=== PATIENT | female | born 1970 | race Two or more races ===

== ENCOUNTER 2017-11-19 09:52 | Emergency (ER) | payer SELFPAY ==
[2017-11-19] MEDS ORDERED: PREDNISONE 20 MG TABLET PO ONE (10:12)
[2017-11-19] MEDS ORDERED: ALBUTEROL SULFATE 0.083% NEB 2.5 MG/3 ML AMPUL NEB ONE (10:12)
--- NOTE | 2017-11-19 11:05 | ER Document Report ---
ED General - General Chief Complaint: Breathing Difficulty Stated Complaint: BREATHING DIFFICULTY Time Seen by Provider: 11/19/17 10:12 Mode of Arrival: Ambulatory Information source: Patient Notes: Patient presents with shortness of breath. She states she is felt short of breath for approximately 3-4 days. She states she has had some sinus congestion that is exacerbated her asthma. She states she currently does not have any medications for her asthma. She states that the symptoms are worse with exertion and better with rest. There is no known radiation symptoms. Symptoms are moderate. Symptoms are intermittent. She has had sinus congestion but a nonproductive dry cough. TRAVEL OUTSIDE OF THE [place] IN LAST 30 DAYS: No - Related Data Allergies/Adverse Reactions: No Known Allergies Allergy (Verified 11/19/17 09:53) Past Medical History - General Information source: Patient - Social History Smoking Status: Never Smoker Chew tobacco use (# tins/day): No Frequency of alcohol use: None Drug Abuse: None Family History: Reviewed & Not Pertinent Patient has suicidal ideation: No Patient has homicidal ideation: No Renal/ Medical History: Denies: Hx Peritoneal Dialysis Past Surgical History: Reports: Hx Breast Surgery - R lumpectomy - Immunizations Hx Diphtheria, Pertussis, Tetanus Vaccination: No Review of Systems - Review of Systems Constitutional: Malaise. denies: Fever Cardiovascular: Dyspnea. denies: Syncope Respiratory: Cough, Short of breath Gastrointestinal: denies: Diarrhea, Vomiting -: Yes All other systems reviewed and negative Physical Exam - Vital signs Vitals: Temp Pulse Resp BP Pulse Ox 99.1 F 95 20 133/85 H 95 11/19/17 09:59 11/19/17 09:59 11/19/17 09:59 11/19/17 09:59 11/19/17 09:59 Interpretation: Hypertensive - General General appearance: Appears well, Alert - HEENT Head: Normocephalic, Atraumatic Eyes: Normal Pupils: PERRL - Respiratory Respiratory status: No respiratory distress Chest status: Nontender Breath sounds: Wheezing Chest palpation: Normal - Cardiovascular Rhythm: Regular Heart sounds: Normal auscultation Murmur: No - Abdominal Inspection: Normal Distension: No distension Bowel sounds: Normal Tenderness: Nontender Organomegaly: No organomegaly - Back Back: Normal, Nontender - Extremities General upper extremity: Normal inspection, Nontender, Normal color, Normal ROM , Normal temperature General lower extremity: Normal inspection, Nontender, Normal color, Normal ROM , Normal temperature, Normal weight bearing. No: Abbey's sign - Neurological Neuro grossly intact: Yes Cognition: Normal Orientation: AAOx4 Sikes Coma Scale Eye Opening: Spontaneous Sikes Coma Scale Verbal: Oriented William Coma Scale Motor: Obeys Commands Sikes Coma Scale Total: 15 Speech: Normal Motor strength normal: LUE, RUE, LLE, RLE Sensory: Normal - Psychological Associated symptoms: Normal affect, Normal mood - Skin Skin Temperature: Warm Skin Moisture: Dry Skin Color: Normal Course - Re-evaluation Re-evalutation: 11/19/17 11:03 After albuterol and steroids patient states she feels significantly better. - Vital Signs Vital signs: Temp Pulse Resp BP Pulse Ox 99.1 F 95 20 133/85 H 95 11/19/17 09:59 11/19/17 09:59 11/19/17 09:59 11/19/17 09:59 11/19/17 09:59 Discharge - Discharge Clinical Impression: Acute asthma exacerbation Qualifiers: Asthma severity: mild Asthma persistence: intermittent Qualified Code(s): J45.21 - Mild intermittent asthma with (acute) exacerbation Condition: Stable Disposition: HOME, SELF-CARE Instructions: Asthma ([facility]) Additional Instructions: Your blood pressure is mildly elevated. Please have this rechecked in 1 week by your doctor. Prescriptions: Albuterol Sulfate [Ventolin Hfa] 1 - 2 puff IH Q4 PRN #1 [id number].[id number] PRN Reason: Prednisone [Deltasone 20 mg Tablet] 3 tab PO DAILY 5 Days tablet Forms: Elevated Blood Pressure, Return to Work Referrals: KRANTHI LOPES MD [COMMUNITY BASED STAFF] - Follow up as needed
[2017-11-19 11:36] VITALS: BP 139/90
== END 2017-11-19 11:25 | disposition home or self-care (01) ==
LOC: ER 09:52
DX: J45.21 Mild intermittent asthma with (acute) exacerbation (principal); R09.81 Nasal congestion; R05 Cough
CPT/HCPCS: 94640; 99284; J7512

== ENCOUNTER 2018-12-22 09:18 | Emergency (ER) | payer OTHER ==
[2018-12-22] MEDS ORDERED: FAMOTIDINE 20 MG TABLET PO ONE (09:42)
[2018-12-22] MEDS ORDERED: PREDNISONE 20 MG TABLET PO ONE (09:42)
[2018-12-22 11:11] VITALS: BP 150/92
--- NOTE | 2018-12-25 09:03 | ER Document Report ---
Entered by BLADE ECHEVARRIA SCRIBE 12/22/18 0945 Acting as scribe for:PATRICK MIRANDA MD ED Allergic Reaction - General Chief Complaint: Allergic Reaction Stated Complaint: POSSIBLE ALLERGIC REACTION Time Seen by Provider: 12/22/18 09:27 TRAVEL OUTSIDE OF THE [place] IN LAST 30 DAYS: No - Related Data Allergies/Adverse Reactions: No Known Allergies Allergy (Verified 12/22/18 09:22) Past Medical History - General Information source: Patient - Social History Smoking Status: Never Smoker Family History: Reviewed & Not Pertinent Renal/ Medical History: Denies: Hx Peritoneal Dialysis Past Surgical History: Reports: Hx Breast Surgery - R lumpectomy - Immunizations Hx Diphtheria, Pertussis, Tetanus Vaccination: No Review of Systems - Review of Systems Constitutional: No symptoms reported EENT: See HPI, Difficulty swallowing, Other - facial swelling Cardiovascular: No symptoms reported Respiratory: No symptoms reported Gastrointestinal: No symptoms reported Genitourinary: No symptoms reported Female Genitourinary: No symptoms reported Musculoskeletal: No symptoms reported Skin: No symptoms reported Hematologic/Lymphatic: No symptoms reported Neurological/Psychological: No symptoms reported -: Yes All other systems reviewed and negative Physical Exam - Vital signs Vitals: Temp Pulse Resp BP Pulse Ox 97.9 F 88 16 149/99 H 100 12/22/18 09:34 12/22/18 09:34 12/22/18 09:34 12/22/18 09:34 12/22/18 09:34 - Notes Notes: Physical Exam: General: Alert, appears well. HEENT: Normocephalic. Atraumatic. PERRL. Extraocular movements intact. Oropharynx clear. No posterior oropharynx swelling. Neck: Supple. Non-tender. Respiratory: No respiratory distress. Clear and equal breath sounds bilaterally. Cardiovascular: Regular rate and rhythm. Abdominal: Normal Inspection. Non-tender. No distension. Normal Bowel Sounds. Back: Non-tender. No deformity or step off. Extremities: Moves all four extremities. Upper extremities: Normal inspection. Normal ROM. Lower extremities: Normal inspection. No edema. Normal ROM. Neurological: Normal cognition. AAOx4. Normal speech. Psychological: Normal affect. Normal Mood. Skin: Upper back erythema. Dermatographism on the back. Course - Re-evaluation Re-evalutation: 12/22/18 10:32 Erythematous areas on the upper mid back have cleared at this time. Patient states the itching is gone and she is anxious to go home. - Vital Signs Vital signs: Temp Pulse Resp BP Pulse Ox 98.1 F 81 16 150/92 H 100 12/22/18 10:59 12/22/18 10:59 12/22/18 10:59 12/22/18 10:59 12/22/18 10:59 Discharge - Discharge Clinical Impression: Acute allergic reaction Qualifiers: Encounter type: initial encounter Qualified Code(s): T78.40XA - Allergy, unspecified, initial encounter Disposition: HOME, SELF-CARE I personally performed the services described in the documentation, reviewed and edited the documentation which was dictated to the scribe in my presence, and it accurately records my words and actions.
== END 2018-12-22 10:59 | disposition home or self-care (01) ==
LOC: ER 09:18
DX: T78.40XA Allergy, unspecified, initial encounter (principal); X58.XXXA Exposure to other specified factors, initial encounter; L50.3 Dermatographic urticaria; R22.0 Localized swelling, mass and lump, head; R13.10 Dysphagia, unspecified
CPT/HCPCS: 99283; J7512

== ENCOUNTER 2019-01-25 02:01 | Emergency (ER) | payer OTHER ==
[2019-01-25] MEDS ORDERED: DIPHENHYDRAMINE HCL 50 MG CAPSULE PO ONE (03:13)
--- NOTE | 2019-01-25 04:31 | ER Document Report ---
HPI - HPI Patient complains to provider of: rash Time Seen by Provider: 01/25/19 03:12 Pain Level: Denies Context: Patient is a 48-year-old female presents to the emergency department for generalized rash all over her body. Patient states she was to this facility a little while ago for same. States she was given steroids and Zantac. States this evening the rash concerned her because she noted on her tongue. Patient denied any respiratory distress at this time just that her tongue was slightly itchy. Patient states she did take 50 mg of Benadryl prior to arrival. Upon my assessment patient states rash has since resolved. She is denying any respiratory distress or tongue swelling or itching. - CONSTITUTIONAL Constitutional: DENIES: Fever, Chills - REPRODUCTIVE Reproductive: DENIES: : Past Medical History - General Information source: Patient - Social History Smoking Status: Never Smoker Chew tobacco use (# tins/day): No Frequency of alcohol use: None Drug Abuse: None Family History: Reviewed & Not Pertinent Patient has suicidal ideation: No Patient has homicidal ideation: No Renal/ Medical History: Denies: Hx Peritoneal Dialysis Past Surgical History: Reports: Hx Breast Surgery - R lumpectomy - Immunizations Hx Diphtheria, Pertussis, Tetanus Vaccination: No Vertical Provider Document - CONSTITUTIONAL Agree With Documented VS: Yes Notes: GENERAL: Alert, interacts well. No acute distress. HEAD: Normocephalic, atraumatic. EYES: Pupils equal, round, and reactive to light. Extraocular movements intact. ENT: Oral mucosa moist, tongue midline. NECK: Full range of motion. Supple. Trachea midline. LUNGS: Clear to auscultation bilaterally, no wheezes, rales, or rhonchi. No respiratory distress. HEART: Regular rate and rhythm. No murmur ABDOMEN: Soft, non-tender. Non-distended. Bowel sounds present in all 4 quadrants. EXTREMITIES: Moves all 4 extremities spontaneously. No edema, normal radial and dorsalis pedis pulses bilaterally. No cyanosis. BACK: no cervical, thoracic, lumbar midline tenderness. No saddle anesthesia, normal distal neurovascular exam. NEUROLOGICAL: Alert and oriented x3. Normal speech. cranial nerves II through XII grossly intact. PSYCH: Normal affect, normal mood. SKIN: Warm, dry, normal turgor. No rashes or lesions noted. - INFECTION CONTROL TRAVEL OUTSIDE OF THE [place] IN LAST 30 DAYS: No Course - Re-evaluation Re-evalutation: 01/25/19 04:30 Thrush the patient describes me does not order [place] in nature. Discussed use of Benadryl every 6 hours for this continued rash. Discussed following up with primary care provider for allergy testing and return precautions. Discussed close return precautions for signs and symptoms of anaphylaxis. Patient voices understanding is stable for discharge. - Vital Signs Vital signs: Temp Pulse Resp BP Pulse Ox 98.6 F 116 H 18 151/94 H 97 01/25/19 02:08 01/25/19 02:08 01/25/19 02:08 01/25/19 02:08 01/25/19 02:08 Discharge - Discharge Clinical Impression: Rash Condition: Stable Disposition: HOME, SELF-CARE Instructions: Acute Urticaria ([facility]) Additional Instructions: You have been seen and treated in the emergency department for urticaria. This is a rash caused by some sort of allergen. Also as we discussed you should follow-up with your primary care provider for allergy testing. Please continue to take 50 mg of Benadryl every 6 hours as needed for this rash and itchiness. Should you develop any respiratory distress, swelling of your tongue or neck you should immediately return to the emergency room. Also return to the emergency room for any other concerning symptoms. Forms: Return to Work
[2019-01-25 04:39] VITALS: BP 151/87
== END 2019-01-25 04:39 | disposition home or self-care (01) ==
LOC: ER 02:01
DX: R21 Rash and other nonspecific skin eruption (principal)
CPT/HCPCS: 99282

== ENCOUNTER 2019-09-14 09:04 | Emergency (ER) | payer SELFPAY ==
[2019-09-14 09:09] VITALS: BP 149/88
--- NOTE | 2019-09-14 09:42 | ER Document Report ---
HPI - HPI Time Seen by Provider: 09/14/19 09:25 Pain Level: Denies Context: Patient is a 49-year-old female who presents emergency department for a refill of her atenolol. She takes 50 mg daily. She has 1 pill left. She denies any symptoms. Denies any dizziness, shortness of breath, difficulty breathing, or any other symptoms at this time. - CONSTITUTIONAL Constitutional: DENIES: Fever, Chills - EENT EENT: DENIES: Sore Throat, Ear Pain, Eye problems - NEURO Neurology: DENIES: Headache, Weakness, Vision blurred, Dizzinesss / Vertigo - CARDIOVASCULAR Cardiovascular: DENIES: Chest pain - RESPIRATORY Respiratory: DENIES: Trouble Breathing, Coughing - GASTROINTESTINAL Gastrointestinal: DENIES: Abdominal Pain, Black / Bloody Stools - URINARY Urinary: DENIES: Dysuria, Urgency, Frequency - REPRODUCTIVE Reproductive: DENIES: : - MUSCULOSKELETAL Musculoskeletal: DENIES: Extremity pain - DERM Skin Color: Normal Skin Problems: None Past Medical History - Social History Smoking Status: Never Smoker Chew tobacco use (# tins/day): No Frequency of alcohol use: None Drug Abuse: None Family History: Reviewed & Not Pertinent Patient has suicidal ideation: No Patient has homicidal ideation: No Renal/ Medical History: Denies: Hx Peritoneal Dialysis Past Surgical History: Reports: Hx Breast Surgery - R lumpectomy - Immunizations Hx Diphtheria, Pertussis, Tetanus Vaccination: No Vertical Provider Document - CONSTITUTIONAL Agree With Documented VS: Yes Exam Limitations: No Limitations General Appearance: No Apparent Distress - INFECTION CONTROL TRAVEL OUTSIDE OF THE [place] IN LAST 30 DAYS: No - HEENT HEENT: Atraumatic, Normocephalic, PERRLA - NECK Neck: Normal Inspection - RESPIRATORY Respiratory: Breath Sounds Normal, No Respiratory Distress - CARDIOVASCULAR Cardiovascular: Regular Rate, Regular Rhythm Pulses: Normal: Radial - MUSCULOSKELETAL/EXTREMETIES Musculoskeletal/Extremeties: FROM - NEURO Level of Consciousness: Awake, Alert, Appropriate - DERM Integumentary: Warm, Dry, No Rash Course - Re-evaluation Re-evalutation: 09/14/19 09:43 Patient denies any symptoms. She appears well. Patient will have her atenolol refilled. [facility] Follow-up precautions were given. Verbal discharge instructions were given to the patient. They verbalized understanding. They are stable for discharge. - Vital Signs Vital signs: Temp Pulse Resp BP Pulse Ox 98.2 F 90 16 149/88 H 97 09/14/19 09:08 09/14/19 09:08 09/14/19 09:08 09/14/19 09:08 09/14/19 09:08 Discharge - Discharge Clinical Impression: Medication refill Condition: Stable Disposition: HOME, SELF-CARE Additional Instructions: You are seen today in the emergency department for a medication refill of your atenolol. [facility] as discussed. If you have dizziness, weakness, or any symptoms that are worrisome to you, please return to the emergency department. Prescriptions: Atenolol [Tenormin 50 mg Tablet] 50 mg PO DAILY #30 tablet Forms: Return to Work Referrals: [facility] [Primary Care Provider] - Follow up in 1 week
== END 2019-09-14 09:44 | disposition home or self-care (01) ==
LOC: ER 09:04
DX: Z76.0 Encounter for issue of repeat prescription (principal)
CPT/HCPCS: 99281

== ENCOUNTER → 2019-10-05 | Outpatient (CLI) | payer OTHER ==
[2019-10-05 16:06] LABS: ABSOLUTE EOSINOPHILS # (AUTO) 0.1 10^3/uL (0.0-0.6); ABSOLUTE LYMPHOCYTES (AUTO) 1.9 10^3/uL (0.5-4.7); ABSOLUTE MONOCYTES (AUTO) 0.6 10^3/uL (0.1-1.4); ABSOLUTE NEUT (AUTO) 5.1 10^3/uL (1.7-8.2); BASOPHILS % (AUTO) 0.6 % (0-2); EOSINOPHILS % (AUTO) 1.1 % (0-6); HEMATOCRIT 45.5 % (36.0-47.0); HEMOGLOBIN 15.7 g/dL (12.0-15.5); LYMPHOCYTES % (AUTO) 24.8 % (13-45); MEAN CORPUSCULAR HEMOGLOBIN 29.1 pg (27.0-33.4); MEAN CORPUSCULAR HGB CONC 34.6 g/dL (32.0-36.0); MEAN CORPUSCULAR VOLUME 84 fl (80-97); MONOCYTES % (AUTO) 7.4 % (3-13); PLATELET COUNT 256 10^3/uL (150-450); RED CELL DISTRIBUTION WIDTH 12.8 % (11.5-14.0); SEGMENTED NEUTROPHILS % (AUTO) 66.1 % (42-78); TOTAL CELLS COUNTED % (AUTO) 100 %; WHITE BLOOD COUNT 7.7 10^3/uL (4.0-10.5)
[2019-10-05 16:35] LABS: ALBUMIN 4.4 g/dL (3.5-5.0); ALKALINE PHOSPHATASE 73 U/L (38-126); ANION GAP 15 (5-19); ASPARTATE AMINO TRANSFERASE 78 U/L (14-36); BILIRUBIN,DIRECT 0.2 mg/dL (0.0-0.4); BILIRUBIN,TOTAL 1.2 mg/dL (0.2-1.3); BLOOD UREA NITROGEN 16 mg/dL (7-20); CALCIUM 9.4 mg/dL (8.4-10.2); CARBON DIOXIDE 23 mmol/L (22-30); CHLORIDE 98 mmol/L (98-107); CHOLESTEROL 207.35 mg/dL (0-200); GLUCOSE 237 mg/dL (75-110); POTASSIUM 4.3 mmol/L (3.6-5.0); TOTAL PROTEIN 8.3 g/dL (6.3-8.2); TRIGLYCERIDES 163 mg/dL (<150)
[2019-10-05 16:45] LABS: DIRECT LDL 158 mg/dL (<100)
[2019-10-05 16:50] LABS: VLDL CHOLESTEROL 32.6 mg/dL (10-31)
== END ==
LOC: CCC 14:49
DX: E11.9 Type 2 diabetes mellitus without complications (principal)
CPT/HCPCS: 36415; 80053; 80061; 83036; 84443; 85025

== ENCOUNTER → 2019-10-20 | Outpatient (CLI) | payer OTHER ==
--- NOTE | 2019-10-20 18:21 | WOMENS IMAGING REPORT ---
EXAM DESCRIPTION: SHILOH KRISHNAMURTHY BILATERAL SCREEN COMPLETED DATE/TIME: 10/20/2019 9:40 am REASON FOR STUDY: Z85.3 PERSONAL HISTORY OF MALIGNANT NEOPLASM OF BREAST Z85.3 PERSONAL HISTORY OF MALIGNANT NEOPLASM OF BREAST COMPARISON: None. EXAM PARAMETERS: Standard craniocaudal and mediolateral oblique views of each breast recorded using digital acquisition. Read with the assistance of CAD. .[facility] - [employer] Version 9.2 LIMITATIONS: None. FINDINGS: Findings present which are benign by mammographic criteria. No suspicious masses, calcifi cations or architectural distortion. Pertinent benign findings: Post therapeutic changes right breast, with lumpectomy in the deep 6 o'homero ck position, surgical clips, postoperative architectural distortion, right breast skin thickening. B ilateral benign calcifications. Benign mammographic findings may include one or more of the following: Smooth masses, popcorn/rim/co arse calcifications, asymmetries, post-procedure changes, and lesions with long-standing stability. IMPRESSION: BENIGN MAMMOGRAPHIC FINDINGS. BIRADS 2 BREAST DENSITY: b. There are scattered areas of fibroglandular density. BIRAD: ASSESSMENT: 2 BENIGN FINDING(S) RECOMMENDATION: ROUTINE SCREENING Please continue yearly bilateral screening mammography/tomosynthesis in October 2020 COMMENT: The patient has been notified of the results by letter per [place] requirements. Additional no tification policies are in place for contacting patient with suspicious or incomplete findings. Quality ID #[id number]: The [employer] recommends an annual screening mammogram for women aged 40 years or over. This facility utilizes a reminder system to ensure that all patients receive reminder letters, and/or direct phone calls for appointments. This includes reminders for routine scr eening mammograms, diagnostic mammograms, or other Breast Imaging Interventions when appropriate. Th is patient will be placed in the appropriate reminder system. TECHNICAL DOCUMENTATION: FINDING NUMBER: (1) ASSESSMENT: (1) JOB ID: [id number] [employer]- All Rights Reserved Reading location - IP/workstation name: [email or web address]
== END ==
LOC: WI 09:10
PROVIDERS: ATTEND Internal Medicine
DX: Z85.3 Personal history of malignant neoplasm of breast (principal)
CPT/HCPCS: 77067

== ENCOUNTER → 2019-10-27 | Outpatient (CLI) | payer OTHER ==
--- NOTE | 2019-10-28 13:36 | Pulmonary Function Test ---
Pulmonary Function Test Date of Procedure:: 10/27/19 INDICATION:: Dyspneacough Referring Provider: Dr. Baugh Excavator Backhoe Operator: Ana Martinez METER READER CHIEF - Report Spirometry: Spirometry: pre-FVC: 2.40 L 85% post-FVC: 2.45 L 87% pre-FEV:1 1.70 L 72% post-FEV1: 1.84 L 78% pre-FEV1/FVC %: 71 post-FEV1/FVC%: 75 predicted: 85 [id number]%: 1.15 L 43% [id number]%: 1.43 L 54% Impression: Mild obstructive ventilatory defect some response to bronchodilator therapy
== END ==
LOC: RT 08:14
PROVIDERS: ATTEND Internal Medicine
DX: J45.30 Mild persistent asthma, uncomplicated (principal); R06.00 Dyspnea, unspecified
CPT/HCPCS: 94060

== ENCOUNTER → 2019-10-27 | Outpatient (CLI) | payer OTHER ==
--- NOTE | 2019-10-27 09:48 | RADIOLOGY REPORT (SQ) ---
EXAM DESCRIPTION: CHEST PA/LATERAL COMPLETED DATE/TIME: 10/27/2019 9:33 am REASON FOR STUDY: SARCOIDOSIS COMPARISON: PA and lateral views of the chest from 02/26/2015 EXAM PARAMETERS: NUMBER OF VIEWS: two views TECHNIQUE: Digital Frontal and Lateral radiographic views of the chest acquired. RADIATION DOSE: NA LIMITATIONS: none FINDINGS: LUNGS AND PLEURA: Unchanged elevation of the right hemidiaphragm. There is no consolidati on, pleural effusion or pneumothorax. MEDIASTINUM AND HILAR STRUCTURES: Unchanged hilar adenopathy. HEART AND VASCULAR STRUCTURES: The cardiac silhouette and pulmonary vasculature are within normal hester its. BONES: No acute findings. HARDWARE: Surgical clips that project over the inferior right hemithorax. OTHER: No other finding. IMPRESSION: Unchanged elevation of the right hemidiaphragm and hilar adenopathy. There is no acute cardiopulmonary process. TECHNICAL DOCUMENTATION: JOB ID: [id number] [employer]- All Rights Reserved Reading location - IP/workstation name: [email or web address]
[2019-10-27 11:16] LABS: FOLATE 11.7 ng/mL (>2.76)
[2019-10-28 07:37] LABS: HEPATITS B SURFACE ANTIGEN Negative (Negative)
[2019-10-28 09:56] LABS: HEPATITIS C VIRUS ANTIBODY <0.1 s/co ratio (0.0-0.9)
== END ==
LOC: OD 09:11
DX: D86.9 Sarcoidosis, unspecified (principal); R94.5 Abnormal results of liver function studies; E55.9 Vitamin D deficiency, unspecified; D51.0 Vitamin B12 deficiency anemia due to intrinsic factor deficiency
CPT/HCPCS: 36415; 71046; 80074; 82306; 82607; 82746

== ENCOUNTER → 2019-11-05 | Outpatient (CLI) | payer OTHER ==
--- NOTE | 2019-11-05 16:58 | WOMENS IMAGING REPORT ---
EXAM DESCRIPTION: BONE DENSITY HIP/SPINE COMPLETED DATE/TIME: 11/05/2019 1:11 pm REASON FOR STUDY: M81.8 OTHER OSTEOPOROSIS WITHOUT CURRENT PATHOLOGICAL FRACTURE M81.8 OTHER OSTEOP OROSIS WITHOUT CURRENT PATHOLOGICAL FRACTU COMPARISON: None. TECHNIQUE: Dual-Energy X-ray Absorptiometry (DEXA) of the AP Spine and Hip. LIMITATIONS: None. FINDINGS: LUMBAR SPINE: The bone mineral density (BMD) measured from L1-L4 in the AP projection correlates with a T-score of -1.5, which is osteopenia as defined by the World Health Organization. BMD Change vs Baseline: N/A HIP: The bone mineral density (BMD) measured in the left femoral neck correlates with a T-score of -1.3, w hich is osteopenia as defined by the World Health Organization. BMD Change vs Baseline: N/A 10 year Fracture Risk Assessment: Major Osteoporotic Fracture: 2.1% without a prior fracture and 3.9% with a prior fracture. Hip Fracture: 0.1% without a prior fracture and 0.2% with a prior fracture. IMPRESSION: 1. LUMBAR SPINE WHO CLASSIFICATION: OSTEOPENIA. 2. HIP WHO CLASSIFICATION: OSTEOPENIA. OVERALL ASSESSMENT: WHO CLASSIFICATION: OSTEOPENIA. COMMENT: The World Health Organization defines low BMD as follows: T-score: Normal: Greater than -1.0 Osteopenia: Between -1.0 and -2.5 Osteoporosis: Less than -2.5 without fractures Established osteoporosis: Less than -2.5 with fractures In general, you may wish to consider: Diagnosis Treatment Follow-up DEXA Normal BMD Prevention 2-3 years Osteopenia Prevention/Therapy 1-2 years Osteoporosis Therapy Yearly TECHNICAL DOCUMENTATION: JOB ID: [id number]- All Rights Reserved Reading location - IP/workstation name: [email or web address]
== END ==
LOC: WI 12:58
PROVIDERS: ATTEND Internal Medicine
DX: M81.8 Other osteoporosis without current pathological fracture (principal); D86.9 Sarcoidosis, unspecified
CPT/HCPCS: 77080

== ENCOUNTER → 2019-11-12 | Outpatient (CLI) | payer OTHER ==
--- NOTE | 2019-11-12 10:33 | RADIOLOGY REPORT (SQ) ---
EXAM DESCRIPTION: U/S ABDOMEN COMPLETE W/DOPPLER COMPLETED DATE/TIME: 11/12/2019 10:01 am REASON FOR STUDY: D86.9 SARCOIDOSIS, UNSPECIFIED D86.9 SARCOIDOSIS, UNSPECIFIED COMPARISON: None. TECHNIQUE: Dynamic and static grayscale images acquired of the abdomen and recorded on PACS. Additio nal selected color Doppler and spectral images recorded. Note: Study does not meet criteria for complete doppler/duplex scan LIMITATIONS: Large patient, midline bowel gas FINDINGS: PANCREAS: Midline pancreas unremarkable LIVER: Echogenic, very difficult to penetrate with the ultrasound energy from fatty infiltration. No gross masses. No biliary ductal dilatation LIVER VASCULATURE: Normal directional flow of the main portal vein and hepatic veins. GALLBLADDER: Unable to visualize ULTRASOUND-DETECTED MASCORRO'S SIGN: Not applicable INTRAHEPATIC DUCTS AND COMMON DUCT: Common bile duct at the maru hepatis not well seen. No gross in trahepatic biliary ductal dilatation INFERIOR VENA CAVA: Poorly visualized AORTA: No aneurysm RIGHT KIDNEY: Normal size. Normal echogenicity. No solid or suspicious masses. No hydronephros is. No calcifications. LEFT KIDNEY: Normal size. Normal echogenicity. No solid or suspicious masses. No hydronephrosi s. No calcifications. SPLEEN: Normal size. No solid masses. PERITONEAL AND PLEURAL SPACES: No ascites or effusions. OTHER: No other significant finding. IMPRESSION: Limited study due to body habitus and midline bowel gas. Fatty liver Unable to visualize the gallbladder TECHNICAL DOCUMENTATION: JOB ID: [id number]- All Rights Reserved Reading location - IP/workstation name: [email or web address]
== END ==
LOC: RAD 09:39
PROVIDERS: ATTEND Internal Medicine
DX: D86.9 Sarcoidosis, unspecified (principal); R94.5 Abnormal results of liver function studies
CPT/HCPCS: 76700; 93976